=== PATIENT | female | born 1975 | race African-American/Black ===

== ENCOUNTER 2018-06-27 08:31 | Day surgery (SDC) | payer OTHER ==
[2018-06-27 08:35] LABS: Specific Gravity 1.015 (1.005-1.030)
[2018-06-27 08:42] LABS: Absolute Lymphocytes (CBC) 1.8 K/uL (0.7-4.9); Absolute Monocytes 0.6 K/uL (0.1-1.3); Basophils % 0.9 % (0-1.3); Hematocrit 35.9 % (36.0-45.0); Lymphocytes % 39.4 % (15.3-44.8); MCH 29.1 pg (27.0-35.0); MCV 85.9 fL (80-100); MPV 8.3 fL (7.6-11.3); RBC Red Blood Cell Count 4.18 M/uL (3.86-4.86)
[2018-06-27] MEDS ORDERED: GENTAMICIN SULF 80 MG/2ML INJ ONE (08:47)
[2018-06-27] MEDS ORDERED: BACITRACIN 50000 UNIT VIAL ONE (08:47)
[2018-06-27] MEDS ORDERED: Mastisol Adhesive Liq ONE (08:47)
[2018-06-27] MEDS ORDERED: CEFAZOLIN SODIUM 1 GM/VIAL ONE (08:47)
[2018-06-27] MEDS ORDERED: Ringers Lactate 1,000 ML IV ONE ×4 (08:49→15:13)
[2018-06-27 08:51] LABS: Urine Appearance CLEAR; Urine Bilirubin NEGATIVE (NEG); Urine Blood NEGATIVE (NEG); Urine Color YELLOW; Urine Glucose NEGATIVE (NEG); Urine Protein NEGATIVE (NEG); Urine Urobilinogen 0.2 mg/dL (0.2-1.0); Urine pH 5.5 (5.0-7.0)
[2018-06-27 08:53] LABS: Urine Microscopic Reflex NO UMIC
[2018-06-27] MEDS ORDERED: CLINDAMYCIN INJ 300 MG in NA CHLORIDE 0.9% 50 ML IV ONE (09:00)
[2018-06-27] MEDS ORDERED: SCOPOLAMINE HYDROBROMIDE PATCH TD ONE (09:03)
[2018-06-27] MEDS ORDERED: MIDAZOLAM HCL 2 MG/2 ML INJ ONE (09:11)
[2018-06-27] MEDS ORDERED: LIDOCAINE 2% MPF 5 ML VIAL ONE (09:11)
[2018-06-27] MEDS ORDERED: GLYCOPYRROLATE 0.2 MG/ML SYR ONE (09:11)
[2018-06-27] MEDS ORDERED: PROPOFOL 200 MG/20 ML VIAL IV ONE (09:11)
[2018-06-27] MEDS ORDERED: FENTANYL CITR 250 MCG/5 ML ONE (09:12)
[2018-06-27] MEDS ORDERED: ROCURONIUM 50 MG/5 ML VIAL IV ONE ×2 (09:12→11:10)
--- NOTE | 2018-06-27 09:12 | RAD REPORT ---
EXAM DESCRIPTION: Brenna Winn (2 Views)06/27/2018 8:40 am CLINICAL HISTORY: Preop for breast surgery COMPARISON: None FINDINGS: The lungs appear clear of acute infiltrate. The heart is normal size IMPRESSION: No acute abnormalities displayed
[2018-06-27] MEDS ORDERED: NS 0.9% VIAL 10 ML ONE (09:15)
[2018-06-27] MEDS ORDERED: LANO/MINERAL OIL/PETRO 3.5 GM ONE (09:55)
[2018-06-27] MEDS ORDERED: DEXAMETHASONE 10 MG/ML VIAL ONE (10:26)
[2018-06-27] MEDS ORDERED: KETOROLAC 30 MG/ML INJ ONE ×2 (10:26→17:35)
[2018-06-27] MEDS ORDERED: MORPHINE 10 MG/ML VIAL ONE (11:08)
--- NOTE | 2018-06-27 12:10 | EKG ---
Test Date: 2018-06-27 Test Time: 08:17:20 Wheel And Axle Inspector: LUPE MEASUREMENT RESULTS: Intervals: Rate: 56 IA: 160 QRSD: 86 QT: 420 QTc: 405 [place]: P: 3 IA: 160 QRS: 45 T: 25 INTERPRETIVE STATEMENTS: Sinus bradycardia Otherwise normal ECG No previous ECG available for comparison Electronically Signed On 06-27-18 12:09:04 [employer] SPECIALIST by Frandy Squires
[2018-06-27] MEDS ORDERED: NEOSTIGMINE 1 MG/ML -5 ML SYRINGE ONE (12:17)
[2018-06-27] MEDS ORDERED: FENTANYL CITR 100 MCG/2 ML ONE (13:47)
[2018-06-27] MEDS ORDERED: HYDROCODONE/APAP 10/325 TAB ONE (16:17)
--- NOTE | 2018-07-04 13:05 | OP ---
Surgeon: Gaston Yousif MD [employer] Kitchen: Tony. Preoperative Diagnosis: Status post right breast lift with implant. Postoperative Diagnosis: Status post right breast lift with implant. Procedure Preformed: Explantation of 255 silicone gel caudal pectoral breast lift. Anesthesia: General. Procedure In Detail: After satisfactory induction of general anesthesia, chest was prepped with Dura Prep. Dry sterile drapes were applied in the usual manner. A 42 template was used to outline the ri ght areola. Then, the skin incision was made around areola and transverse and curvilinear inferior i ncisions were made. The intervening skin de-epithelialized with EpiCut or dermabrader. Both sides w ere done simultaneously and flap elevation was continued by making transverse incision with electroca utery. Flap was thinned to 1.64 cm cephalad. Elevation was continued towards the sternum, clavicle, and anterior axillary line. Then, the inferior incision was made full thickness and then conization was performed using 2-0 PDS sutures. This was done after implants removed from the lateral incision and tapes were lying caudal to the pectoralis major muscle and probably dual-plane approach was atte mpted. The cone was formed and then straps were elevated at 12 o'clock, 1:30, and 3 o'clock position in the right breast. The straps were then woven in and out the pectoralis major muscle, back to the base of the cone, and eventually tied with 2-0 PDS to themselves. The strap at 3 o'clock position w as sewn with 2-0 Ethibond over the sternum at the 3 o'clock position. Left side was done in mirror i mage manner. The wound template closed, checked for symmetry. Dog ears marked out. Then, the patie nt underwent placement of 10 BETTINA drain, brought out the axilla, sewn in place with 2-0 silk. Wound wa s irrigated with antibiotic solution and then the wound was closed with 3-0 Vicryl subcu, 3-0 PDS run sesar subcuticular tied in the vertical meridian of the breast. After both sides were done, the patie nt was sat up. Site for new nipple-areolar complex was marked out. Tissue was cored out. Nipple wa s delivered and sewn with interrupted 4-0 PDS followed by 4-0 PDS in running subcuticular. Dressings consisted of tincture of benzoin, Steri-Strips, 5x5s, fluffs, and Norberto wrap. The patient tolerated t he procedure well and returned to recovery. SANTOS/ELENO Voice ID: [id number] Report ID: [id number]
== END 2018-06-27 17:51 | disposition home or self-care (01) ==
LOC: OR 08:31
PROVIDERS: ATTEND Specialist
PROC: 0HPU0JZ Removal of Synthetic Substitute from Left Breast, Open Approach (ICD-10-PCS; 2018-06-27)
PROC: 0HPT0JZ Removal of Synthetic Substitute from Right Breast, Open Approach (ICD-10-PCS; 2018-06-27)
PROC: 0H0V0ZZ Alteration of Bilateral Breast, Open Approach (ICD-10-PCS; principal; 2018-06-27 09:45)
DX: N64.81 Ptosis of breast (principal); Z45.812 Encounter for adjustment or removal of left breast implant; Z45.811 Encounter for adjustment or removal of right breast implant; E07.9 Disorder of thyroid, unspecified; Z88.0 Allergy status to penicillin
CPT/HCPCS: 36415; 71046; 81003; 81025; 85025; 88305; 93005; J0690; J1100; J1580; J2250; J2704; J2710; J3010